=== PATIENT | male | born 1995 | race Hispanic/Latino ===

== ENCOUNTER 2019-03-05 19:39 | Emergency (ER) | payer OTHER ==
[2019-03-05] MEDS ORDERED: IBUPROFEN 400 MG TAB ONE (20:01)
[2019-03-05] MEDS ORDERED: ACETAMINOPHEN 500 MG TAB ONE (20:01)
--- NOTE | 2019-03-05 20:22 | RAD REPORT ---
EXAM DESCRIPTION: RAD - Hand Left 3 View - 03/05/2019 8:09 pm CLINICAL HISTORY: left thumb injury and pain COMPARISON: <Comparisons> FINDINGS: No fracture or dislocation is seen.
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
[2019-03-05 22:16] VITALS: TEMP 97.5
[2019-03-05 22:18] VITALS: BP 133/99; O2SAT 97
== END 2019-03-05 21:06 | disposition home or self-care (01) ==
LOC: ER 19:39
DX: S63.602A Unspecified sprain of left thumb, initial encounter (principal); X58.XXXA Exposure to other specified factors, initial encounter; Y93.89 Activity, other specified; Y92.9 Unspecified place or not applicable
CPT/HCPCS: 99283